=== PATIENT | female | born 1970 | race Caucasian/White ===

== ENCOUNTER 2018-11-01 02:27 | Emergency (ER) | payer OTHER ==
[~2018-11-01] VITALS: Ht 162.6 cm; Wt 68.0 kg
[2018-11-01] MEDS ORDERED: LEVO100T5 PO (03:20)
--- NOTE | 2018-11-01 03:52 | RAD ---
Indication:Sudden onset pain second MCP joint. Swelling. TECHNIQUE: 3 views of left hand COMPARISON: None FINDINGS: No acute fracture or dislocation. Calcification is seen in the palmar aspect of the soft tissue adjacent to the head of the second metacarpal joint. No arthritic process. 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 Electronically signed by: Semaj Zambrano DO (11/01/2018 3:49 AM) [facility]
--- NOTE | 2018-11-01 04:23 | PHYS DOC ---
Past History Past Medical History: Gallstones, Hypothyroid, Other Past Surgical History: Cholecystectomy, Other Alcohol Use: Occasionally Drug Use: None Adult General Chief Complaint Chief Complaint: HAND PROBLEM HPI HPI 48-year-old female presents with hand pain at the base of the second digit. The patient was at a [employer] track event all day yesterday and throughout the day this pain in her hand kept getting worse. She denies any trauma or overuse. She noticed that the hand seems swollen especially at the base of the second finger. She's never had this before. She has no history of gout. She was unable to sleep at home so she decided to come in for evaluation. Pain is 4 out of 10. She denies fever or chills. Review of Systems Review of Systems Constitutional: Denies fever or chills [] Eyes: Denies change in visual acuity, redness, or eye pain [] HENT: Denies nasal congestion or sore throat [] Respiratory: Denies cough or shortness of breath [] Cardiovascular: No additional information not addressed in HPI [] GI: Denies abdominal pain, nausea, vomiting, bloody stools or diarrhea [] : Denies dysuria or hematuria [] Musculoskeletal: Left hand pain[] Integument: Denies rash or skin lesions [] Neurologic: Denies headache, focal weakness or sensory changes [] Endocrine: Denies polyuria or polydipsia [] All other systems were reviewed and found to be within normal limits, except as documented in this note. Allergies Allergies Allergies Coded Allergies Type Severity Reaction Last Updated Verified No Known Drug Allergies 11/01/18 No Physical Exam Physical Exam Constitutional: Well developed, well nourished, no acute distress, non-toxic appearance. [] HENT: Normocephalic, atraumatic, bilateral external ears normal, oropharynx moist, no oral exudates, nose normal. [] Eyes: PERRLA, EOMI, conjunctiva normal, no discharge. [] Neck: Normal range of motion, no tenderness, supple, no stridor. [] Cardiovascular:Heart rate regular rhythm, no murmur [] Lungs & Thorax: Bilateral breath sounds clear to auscultation [] Abdomen: Bowel sounds normal, soft, no tenderness, no masses, no pulsatile masses. [] Skin: Warm, dry, no erythema, no rash. [] Back: No tenderness, no CVA tenderness. [] Extremities: Pain with palpation over the left second MCP area, swelling in the same area, palpable mass.[] Neurologic: Alert and oriented X 3, normal motor function, normal sensory function, no focal deficits noted. [] Psychologic: Affect normal, judgement normal, mood normal. [] Current Patient Data Vital Signs Vital Signs Date Time Temp Pulse Resp B/P (MAP) Pulse Ox O2 Delivery O2 Flow Rate FiO2 11/01/18 03:00 98.4 62 18 99 Room Air EKG EKG [] Radiology/Procedures Radiology/Procedures [] Impressions: Indication:Sudden onset pain second MCP joint. Swelling. TECHNIQUE: 3 views of left hand COMPARISON: None FINDINGS: No acute fracture or dislocation. Calcification is seen in the palmar aspect of the soft tissue adjacent to the head of the second metacarpal joint. No arthritic process. 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 Electronically signed by: Semaj Hill DO (11/01/2018 3:49 AM) [facility] DICTATED AND SIGNED BY: SEMAJ HILL DO DATE: 11/01/18 0349 CC: YURY MANCIA DO; JHONATAN VALADEZ ~ Course & Med Decision Making Course & Med Decision Making Pertinent Labs and Imaging studies reviewed. (See chart for details) Patient's x-ray was suggestive of pseudogout. I discussed the option of direct injection versus oral medication and the patient would prefer oral medication. I gave her 500 mg in approximately ED. She will take this dose twice a day at home for the next several days. She will follow up with her PCP as needed. She is stable for discharge at this time. [] Dragon Disclaimer Dragon Disclaimer This electronic medical record was generated, in whole or in part, using a voice recognition dictation system. Departure Departure: Impression: Primary Impression: Calcium pyrophosphate arthropathy of hand Disposition: HOME, SELF-CARE Condition: STABLE Referrals: JHONATAN VALADEZ (PCP) Patient Instructions: Pseudogout Additional Instructions: Please take 500 mg of the proximal twice a day for 5 days. As an alternative, you can take 600 mg of ibuprofen 3 times a day. Always take these medications with a little bit of food. YURY MANCIA DO November 01, 2018 04:23
[2018-11-01 04:37] VITALS: BP 128/74
[2018-11-01] MEDS ORDERED: NAPROXEN 500 MG TABLET PO ONE (05:00)
== END 2018-11-01 04:37 | disposition home or self-care (01) ==
LOC: ER 02:27
DX: M11.842 Other specified crystal arthropathies, left hand (principal); E03.9 Hypothyroidism, unspecified
CPT/HCPCS: 73130; 99284

== ENCOUNTER → 2020-05-09 | Outpatient (CLI) | payer OTHER ==
[~2020-05-09] MED LIST: LEVO100T5 PO
--- NOTE | 2020-05-09 16:52 | RAD ---
EXAM: HAND LEFT 3V. HISTORY: Left hand pain. COMPARISON: None. FINDINGS: Soft tissue calcifications are noted along the volar aspect of the second metacarpophalangeal joint. There is no clear associated joint space narrowing subchondral cyst formation. No fractures are identified. Tiny osteophytes are noted along the distal interphalangeal joints indicating mild osteoarthritis. There is also mild at the triscaphe articulation. Alignment is maintained. IMPRESSION: 1. 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 Rarely, giant cell tumor of the tendon sheath a calcified. Correlate with other clinical data. 2. Mild osteoarthritis as above. Electronically signed by: Clair Levy MD (05/09/2020 4:49 PM) [facility]
== END ==
LOC: PMG 15:05
PROVIDERS: ATTEND Physician Assistant
DX: M19.042 Primary osteoarthritis, left hand (principal); M25.742 Osteophyte, left hand
CPT/HCPCS: 73130